=== PATIENT | male | born 1980 | race American Indian/Alaskan Native ===

== ENCOUNTER 2016-06-25 11:10 | Emergency (ER) | payer MEDICAID ==
[2016-06-25] MEDS ORDERED: Amoxicillin-Clav 875-125 mg Tab PO STA (11:21)
[2016-06-25 11:24] VITALS: BP 130/91; PULSE 69; RESP 16; TEMP 97.6; O2SAT 100; BMI 29.7
--- NOTE | 2016-06-25 11:24 | ED PDOC ---
Arrival/HPI - General Time Seen by Provider: 06/25/16 11:11 Historian: Patient - History of Present Illness Narrative History of Present Illness (Text): 06/25/16 11:20 36 y/o male, no significant, nkda, c/o itching rash on the face x 3 days and started to have discharges today. Pt. has no change in soap/clothing/detergent , started with mild facial itching about 4 days ago, no fever or chills, no headache or night sweat, no dizziness, no change in vision, no eye pain or change in vision, no other medical or psychological complaints. Past Medical History - Provider Review Nursing Documentation Reviewed: Yes - Past History Past History: No Previous - Infectious Disease Hx of Infectious Diseases: None - Tetanus Immunization Tetanus Immunization: Up to Date - Past Medical History Past Medical History: No Previous - Pulmonary Hx Asthma: Yes - Psychiatric Hx Depression: No Hx Emotional Abuse: No Hx Physical Abuse: No Hx Substance Use: No - Past Surgical History Past Surgical History: No Previous - Surgical History Hx Musculoskeletal Surgery: Yes (left knee sx) Other/Comment: orthoscopic surgery L knee - Anesthesia Hx Anesthesia: No Hx Anesthesia Reactions: No Hx Malignant Hyperthermia: No - Suicidal Assessment Feels Threatened In Home Enviroment: No Family/Social History - Physician Review Nursing Documentation Reviewed: Yes Family/Social History: Unknown Family HX Smoking Status: Current Some Days Smoker Hx Alcohol Use: Yes Hx Substance Use: No Substance used: marijuana Hx Substance Use Treatment: No Allergies/Home Meds Allergies/Adverse Reactions: Allergies No Known Allergies Allergy (Verified 04/03/12 14:59) Review of Systems - Review of Systems Constitutional: absent: Fatigue, Fevers Eyes: absent: Vision Changes ENT: absent: Hearing Changes, Epistaxis Respiratory: absent: SOB, Cough Skin: Rash, Pruritis, Skin Lesions. absent: Laceration, Abscess, Ulcer, Cellulitis, Other Neurological: absent: Headache, Dizziness, Focal Weakness Physical Exam Vital Signs Reviewed: Yes Temperature: Afebrile Blood Pressure: Hypertensive Pulse: Regular Respiratory Rate: Normal Appearance: Positive for: Well-Appearing, Non-Toxic, Comfortable Pain Distress: None Mental Status: Positive for: Alert and Oriented X 3 - Systems Exam Head: Present: Atraumatic, Normocephalic Pupils: Present: PERRL Extroacular Muscles: Present: EOMI Conjunctiva: Present: Normal Mouth: Present: Moist Mucous Membranes Neck: Present: Normal Range of Motion Respiratory/Chest: Present: Clear to Auscultation, Good Air Exchange. No: Respiratory Distress, Accessory Muscle Use Cardiovascular: Present: Regular Rate and Rhythm, Normal S1, S2. No: Murmurs Abdomen: Present: Normal Bowel Sounds. No: Tenderness, Distention, Peritoneal Signs Back: Present: Normal Inspection Upper Extremity: Present: Normal Inspection. No: Cyanosis, Edema Lower Extremity: Present: Normal Inspection. No: Edema Neurological: Present: GCS=15, Speech Normal, Motor Func Grossly Intact, Gait Normal, Memory Normal Skin: Present: Warm, Dry, Rashes, Normal Color, Other (visible papule rash with mild skin breaking on the beared region with honey yellow crusting noted, no streaking or ulcer, no cellulitis. ) Psychiatric: Present: Alert, Oriented x 3, Normal Insight, Normal Concentration Medical Decision Making ED Course and Treatment: 06/25/16 11:24 -This is likely dermatitis induced into bacterial infection. Pt. has no periorbital swelling and no pain when moving the eye. -pepcid/augmentin/prednisone ordered. -Discharge home with zyrtec, pepcid, prednisone, augmentin, mupirocin ointment, keep the skin cool and dry, follow up with your own pmd and radiology aide within 2 days, don't use the same shaving cream or razor blade, follow up with your own pmd or radiology aide within 2 days, return to the ER for any new or worsening signs or symptoms. - PA / CONVEYOR WEIGHER OPERATOR / Resident Statement MD/DO has reviewed & agrees with the documentation as recorded. Disposition/Present on Arrival - Present on Arrival Any Indicators Present on Arrival: No History of DVT/PE: No History of Uncontrolled Diabetes: No Urinary Catheter: No History of Decub. Ulcer: No History Surgical Site Infection Following: None - Disposition Have Diagnosis and Disposition been Completed?: Yes Diagnosis: Impetigo, Dermatitis Disposition: HOME/ ROUTINE Disposition Time: 11:26 Patient Plan: Discharge Condition: GOOD Additional Instructions: Discharge home with zyrtec, pepcid, prednisone, augmentin, mupirocin ointment, keep the skin cool and dry, follow up with your own pmd and radiology aide within 2 days, don't use the same shaving cream or razor blade, follow up with your own pmd or radiology aide within 2 days, return to the ER for any new or worsening signs or symptoms. Prescriptions: Amoxicillin/Clavulanate [Augmentin 875 MG-125 MG] 1 tab PO BID #18 tab Mupirocin 2% Ointment [Bactroban Ointment] 1 appl TP TID #15 g Famotidine [Pepcid] 20 mg PO BID #10 tab Cetirizine HCl [Zyrtec] 10 mg PO DAILY #8 tab.rapdis predniSONE [Prednisone] 2 tab PO DAILY #8 tab Referrals: Luz Meredith MD [Staff Provider] - Follow up with primary [facility] [place] [Outside] - Follow up with primary Forms: WORK NOTE
== END 2016-06-25 11:36 | disposition home or self-care (01) ==
LOC: ED 11:10
DX: L01.00 Impetigo, unspecified (principal); L30.9 Dermatitis, unspecified

== ENCOUNTER 2016-06-27 21:24 | Emergency (ER) | payer MEDICAID ==
[2016-06-27 21:42] VITALS: BP 121/88; PULSE 89; RESP 16; TEMP 98.2; O2SAT 97; BMI 30.5
--- NOTE | 2016-06-27 21:55 | ED PDOC ---
Arrival/HPI - General Chief Complaint: Abnormal Skin Integrity Time Seen by Provider: 06/27/16 21:55 Historian: Patient - History of Present Illness Narrative History of Present Illness (Text): 06/27/16 21:55 This 36 yo AA male presents to this ED c/o whote spot on his face after using Bactroban cream. Patient was seen in this ED 2 days ago. He was tretaed with PO medication and cream. He said skin infection has improved, but he has these white spots. Patient denies facial itching, redness or discharge. patient did not call customer engagement representative office. denies other complains. Time/Duration: Other (1 day) Context: Home Past Medical History - Provider Review Nursing Documentation Reviewed: Yes - Past History Past History: No Previous - Infectious Disease Hx of Infectious Diseases: None - Tetanus Immunization Tetanus Immunization: Up to Date - Past Medical History Past Medical History: No Previous - Pulmonary Hx Asthma: Yes - Psychiatric Hx Depression: No Hx Emotional Abuse: No Hx Physical Abuse: No Hx Substance Use: No - Past Surgical History Past Surgical History: No Previous - Surgical History Hx Musculoskeletal Surgery: Yes (left knee sx) Other/Comment: orthoscopic surgery L knee - Anesthesia Hx Anesthesia: No Hx Anesthesia Reactions: No Hx Malignant Hyperthermia: No - Suicidal Assessment Feels Threatened In Home Enviroment: No Family/Social History - Physician Review Nursing Documentation Reviewed: Yes Family/Social History: No Known Family HX Smoking Status: Current Some Days Smoker Hx Alcohol Use: Yes Hx Substance Use: No Substance used: marijuana Hx Substance Use Treatment: No Allergies/Home Meds Allergies/Adverse Reactions: Allergies No Known Allergies Allergy (Verified 04/03/12 14:59) Review of Systems - Review of Systems Constitutional: Normal. absent: Fatigue, Weight Change, Fevers Eyes: Normal ENT: Normal Respiratory: Normal Cardiovascular: Normal Gastrointestinal: Normal Genitourinary Male: Normal Musculoskeletal: Normal Skin: Rash (white spots on his face) Neurological: Normal Endocrine: Normal Hemo/Lymphatic: Normal Psychiatric: Normal Physical Exam Vital Signs Temp Pulse Resp BP Pulse Ox 06/27/16 21:39 98.2 F 89 16 121/88 97 Temperature: Afebrile Blood Pressure: Normal Pulse: Regular Respiratory Rate: Normal Appearance: Positive for: Well-Appearing, Non-Toxic, Comfortable Pain Distress: None Mental Status: Positive for: Alert and Oriented X 3 - Systems Exam Head: Present: Atraumatic, Normocephalic Pupils: Present: PERRL Extroacular Muscles: Present: EOMI Conjunctiva: Present: Normal Mouth: Present: Moist Mucous Membranes Neck: Present: Normal Range of Motion. No: Meningeal Signs Respiratory/Chest: Present: Clear to Auscultation, Good Air Exchange. No: Respiratory Distress, Accessory Muscle Use, Wheezes, Retracting, Rhonchi Neurological: Present: GCS=15, CN II-XII Intact, Speech Normal, Motor Func Grossly Intact, Normal Sensory Function, Normal Cerebellar Funct, Gait Normal Skin: Present: Warm, Dry, Rashes ((+) small discoloration of face skin. No erythema, rash, abscess), Normal Color Psychiatric: Present: Alert, Oriented x 3, Normal Insight, Normal Concentration Medical Decision Making ED Course and Treatment: 06/27/16 22:09 Re-evaluation. Patient feels better. Discussed results and plan with patient who expresses understanding. All questions answered and there is agreement with the plan to discharge home with instructions. Patient stable for discharge. Return if symptoms persist or worsen Patient was recommended to see Computer Tape Librarian at earliest appointment . Re-evaluation Time: 22:09 Reassessment Condition: Re-examined, Unchanged Disposition/Present on Arrival - Present on Arrival Any Indicators Present on Arrival: No History of DVT/PE: No History of Uncontrolled Diabetes: No Urinary Catheter: No History of Decub. Ulcer: No History Surgical Site Infection Following: None - Disposition Have Diagnosis and Disposition been Completed?: Yes Diagnosis: Rash and nonspecific skin eruption Disposition: HOME/ ROUTINE Disposition Time: 22:10 Patient Plan: Discharge Condition: GOOD Discharge Instructions (ExitCare): Acute Rash (ED) Additional Instructions: Call DR. [employer] tomorrow for follow up visit in 2-3 days. Continue with home medication. Stop Bactroban Cream [facility] - Follow up with primary Calvin Edward MD [Staff Provider] - Follow up with primary
== END 2016-06-27 22:20 | disposition home or self-care (01) ==
LOC: ED 21:24
DX: R21 Rash and other nonspecific skin eruption (principal)